=== PATIENT | female | born 1975 ===

== ENCOUNTER 2016-11-18 15:43 | Inpatient (IN) | payer BC, OTHER ==
[2016-11-18] MEDS: Lactated Ringer's 1,000 ML IV SCH ×2 (17:00→17:49)
[2016-11-18] MEDS ORDERED: ceFAZolin 2 GM in Sodium Chloride 0.9% 100 ML IVPB ONE (17:06)
[2016-11-18 17:21] LABS: BASO % 0.4 % (0.0-2.0); EOS # 0.1 K/uL (0.0-0.7); HEMATOCRIT 36.9 % (34.0-47.0); LYMPH # 1.1 K/uL (1.0-4.3); LYMPH % 16.3 % (20.0-40.0); MEAN CELL VOLUME 90.2 fl (81.0-99.0); MEAN CORPUSCULAR HEMOGLOBIN 29.6 pg (27.0-31.0); MEAN CORPUSCULAR HGB CONC 32.8 g/dL (33.0-37.0); MEAN PLATELET VOLUME 7.3 fl (7.2-11.7); MONO # 0.4 K/uL (0.0-0.8); MONO % 6.4 % (0.0-10.0); NEUT # 5.3 K/uL (1.8-7.0); NEUT % 75.9 % (50.0-75.0); RED CELL DISTRIBUTION WIDTH 15.8 % (11.5-14.5); WHITE BLOOD COUNT 6.9 K/uL (4.8-10.8)
[2016-11-18 17:38] VITALS: BP 143/84; PULSE 104; RESP 16; TEMP 98; O2SAT 100
[2016-11-18] MEDS ORDERED: Oxytocin 30 units/LR 500ML 30 U/500 ML BAG IV ONE (17:54)
[2016-11-18] MEDS ORDERED: ePHEDrine 50 mg/ml Inj ONE (18:05)
[2016-11-18] MEDS ORDERED: Morphine 1 mg/ml preservative-free Inj(Duramorph) ONE (18:06)
[2016-11-18] MEDS ORDERED: Phenylephrine 10 mg/ml Inj ONE (18:06)
--- NOTE | 2016-11-18 18:08 | OBHP ---
Datetime: 11/18/2016 18:00 IP Adm Impression: Term, intrauterine IP Admit Plan: Admit to unit Admit Comment, IP Provider: The patient presents to labor and delivery complaining of uterine contra ctions of mild to moderate intensity. Patient was going to be scheduled for section secondar y to polyhydramnios. Patient reports good movement no leakage of fluid. care significa nt for polyhydramnios abnormal GST normal 3 hour. Past medical history none Past surgical history tummy tuck and previous section Medications vitamins No known drug allergies Social history patient denies alcohol tobacco use Review of systems patient denies headache chest pain shortness of breath palpitations nausea and v omiting patient reports uterine contractions no vaginal bleeding noted heat or cold intolerance easy bruisability or musculoskeletal complaints Vital signs stable afebrile Physical exam see notes Intrauterine at 37 weeks 6 days polyhydramnios uterine contractions cervical cerclage MFM consult obtained recommendation for delivery made Informed consent obtained discussed risks benefits and alternatives to surgery patient agrees to p sj of care will admit for postop management Pelvic Type - PN: Adequate Extremities - PN: Normal Abdomen - PN: Normal Back - PN: Normal Breast - PN: Not Done Lungs - PN: Normal Heart - PN: Normal Thyroid - PN: Normal Neurologic - PN: Normal HEENT - PN: Normal General - PN: Normal Presentation-Admit: Vertex FHR - Baseline A Provider: 145 Gestation - Est Wks by US: 38.0 Pool Provider: Negative EGA AdmitDate IP: 37.6 Vital Signs Provider: Reviewed IP Chief Complaint: Uterine contractions; Scheduled Section NICHD Variability Prov Fetus A: Moderate 6-25bpm NICHD Accel Fetus A IP Provider: [id number] FHR Category Provider Fetus A: Category I NICHD Decel Fetus A IP Provider: None Dilatation, Provider: 0 Effacement, Provider: 0 Station, Provider: 0 Genitourinary Exam: Normal DTRs - PN: Normal
[2016-11-18] MEDS ORDERED: Oxycodone/Acetaminophen 5/325 mg Tab PO PRN ×3 (19:38→21:34)
[2016-11-18] MEDS ORDERED: Lactated Ringer's 1,000 ML IV SCH ×2 (19:45→21:34)
--- NOTE | 2016-11-18 21:07 | OP ---
PROCEDURE DATE: 11/18/2016 PREOPERATIVE DIAGNOSES: Intrauterine at 38+ weeks, polyhydramnios, uterine contractions, i n labor, previous history of section, history of cerclage placement. POSTOPERATIVE DIAGNOSES: Intrauterine at 38+ weeks, polyhydramnios, uterine contractions, in labor, previous history of section, history of cerclage placement. OPERATION PERFORMED: Repeat low flap transverse section via Pfannenstiel skin incision and cerclage removal. SURGEON: Joycelyn Kebede MD. RABBIT BREEDER: Dr. Aquiles Flaherty. ANESTHESIA: Spinal administered by Dr. Amato. ESTIMATED BLOOD LOSS: 800 mL. INPUT AND OUTPUT: Dominguez catheter put out approximately 100 mL of clear urine. The patient received approximately 1700 mL of D5LR intraoperatively. OPERATIVE FINDINGS: Baby boy, vertex presentation, Apgars 9 and 9, weighing 3500 grams. Normal uter us, tubes, and ovaries were identified. PROCEDURE #1: After informed consent was obtained, the patient was taken to the operating room where she was given spinal anesthesia. She was then prepped and draped in the usual sterile fashion with a leftward tilt. Pfannenstiel skin incision was then made with a scalpel and carried down to the und erlying layer of fascia. The fascia was nicked in the midline and the fascial incision was then exte nded superiorly and inferiorly with good visualization. The fascial incision was then extended later ally with the curved Ortega scissors. Superior aspect of the fascial incision was then grasped with Judson karlo clamps, elevated up, and the rectus muscles were dissected off using both sharp and blunt dissec tion. Attention was then turned to the inferior aspect of the fascial incision which in similar fash ion was grasped with Ting clamps, it was elevated up and the rectus muscles were dissected off usin g both sharp and blunt dissection. The rectus muscles were then in the midline. The perit oneum identified and entered sharply with the Metzenbaum scissors. Peritoneal incision was then exte nded superiorly and inferiorly with good visualization of the bladder. The vesicouterine peritoneum was identified and entered sharply with the Metzenbaum scissors. The incision was then extended late rally and the bladder flap was created digitally. The bladder blade was then reinserted and a low tr ansverse uterine incision was made with a scalpel. The uterine incision was then extended laterally with the bandage scissors. The infant's head was then delivered atraumatically. The nose and mouth were suctioned with DeLee suction trap. The cord was clamped and cut. The infant was handed off to waiting pediatricians. Cord blood was obtained and sent to the lab. The placenta was removed manual ly. The uterus was cleared of all clots and debris. Incision was repaired with 0 Vicryl in a runnin g locked fashion. The second layer of the same suture was used to obtain excellent hemostasis. The abdomen was then copiously irrigated. Irrigant was removed with a suction device. Hemostasis was no flavio. The uterus was returned to the abdomen. The peritoneum was closed with 2-0 Vicryl in a running fashion. The muscle was reapproximated with 0 Vicryl in interrupted fashion. The fascia was closed with 0 Vicryl in a running fashion. The skin was closed with surgical clips. All sponge, lap, need le, and instrument counts were correct x 2 and the patient was taken to recovery room in awake and st able condition. ADDENDUM: Dr. Flaherty was the assistant at surgery in the procedure and was instrumental in the care of the pa tient, helped create exposure, helpful with delivering the infant and helpful in cerclage removal. T he procedure would not have been possible without his assistance. DESCRIPTION OF PROCEDURE #2: After the section was performed, the cerclage was to be remove d. A speculum was inserted into the vagina. The cerclage suture was identified, grasped with a spon ge stick and the suture was cut. Both stitches were removed in a similar fashion. The patient navya ated the procedure well and all sponge, lap, needle, and instrument counts were correct x 2. The pat ient was taken to recovery room in awake and stable condition. Joycelyn Kebede MD cc: [id number] TT: 11/18/2016 21:06:00 ivana
[2016-11-18] MEDS ORDERED: Simethicone 80 mg Chewtab PO SCH (22:00)
[2016-11-19] MEDS: Simethicone 80 mg Chewtab PO SCH ×5 (00:47→21:51)
[2016-11-19 07:09] LABS: HEMATOCRIT 28.7 % (34.0-47.0); MEAN CELL VOLUME 90.5 fl (81.0-99.0); MEAN CORPUSCULAR HEMOGLOBIN 29.5 pg (27.0-31.0); MEAN CORPUSCULAR HGB CONC 32.6 g/dL (33.0-37.0); RED CELL DISTRIBUTION WIDTH 15.9 % (11.5-14.5); WHITE BLOOD COUNT 8.9 K/uL (4.8-10.8)
--- NOTE | 2016-11-19 08:56 | OBPPN ---
Datetime: 11/19/2016 08:50 PP Pain Prov: Within normal limits PP Nausea Prov: Denies PP Flatus Prov: No PP BM Prov: No PP Abdomen/Uterus Prov: Normal PP Lochia Prov: Normal PP Extremities Prov: Normal PP C/S Incision Prov: Normal PP Progress Prov: Normal PP Comments Phys Exam Prov: Incision w/ bandage in place PP Impression Prov: Normal progression PP Plan Prov: Continue present management PP Progress Note Prov: POD 1 s/p c/s, doing well, breast and bottle feeding, tolerating regular diet Encourage OOB today Vital Signs Provider PP: Reviewed
[2016-11-19] MEDS: Oxycodone/Acetaminophen 5/325 mg Tab PO PRN (13:35)
[2016-11-20] MEDS: Simethicone 80 mg Chewtab PO SCH ×3 (04:26→16:40)
--- NOTE | 2016-11-20 07:40 | OBPPN ---
Datetime: 11/20/2016 07:32 PP Pain Prov: Within normal limits PP Nausea Prov: Denies PP Flatus Prov: Yes PP BM Prov: No PP Abdomen/Uterus Prov: Normal PP Lochia Prov: Normal PP Extremities Prov: Normal PP C/S Incision Prov: Normal PP Progress Prov: Normal PP Comments Phys Exam Prov: Incision: intact w/ xochitl PP Impression Prov: Normal progression PP Plan Prov: Continue present management PP Progress Note Prov: POD 2 s/p Repeat c/s, doing well, breast and bottle feeding Continue curret management Vital Signs Provider PP: Reviewed
[2016-11-20] MEDS: Oxycodone/Acetaminophen 5/325 mg Tab PO PRN (16:36)
[2016-11-21] MEDS: Simethicone 80 mg Chewtab PO SCH ×3 (00:22→09:26)
--- NOTE | 2016-11-21 07:06 | OBPPN ---
Datetime: 11/21/2016 06:58 PP Pain Prov: Within normal limits PP Nausea Prov: Denies PP Flatus Prov: Yes PP BM Prov: Yes PP Abdomen/Uterus Prov: Normal PP Lochia Prov: Normal PP Extremities Prov: Normal PP C/S Incision Prov: Normal PP Progress Prov: Normal PP Comments Phys Exam Prov: Incision: intact w/ xochitl PP Impression Prov: Normal progression PP Plan Prov: Discharge PP Progress Note Prov: POD 3 s/p Repeat c/s, doing well, breast pumping and bottle feeding Rx's motrin, percocet, and ferrous sulfate given Discharge home today Pt to follow up w/ Dr. Kebede for staple removal Vital Signs Provider PP: Reviewed
== END 2016-11-21 12:00 | disposition home or self-care (01) | DRG 765 ==
LOC: H.EROB2 15:43 → H.L&D 16:59 → H.EROB2 17:02 → H.L&D 17:03 → UNDOADMIN 17:03 → H.OB/GYN 22:10 → H.L&D 22:10 → H.OB/GYN 11-19 11:00 → UNDODISIN 11-21 12:00
PROVIDERS: ADMIT Obstetrics & Gynecology Gynecology; ATTEND Obstetrics & Gynecology Gynecology
PROC: 10D00Z1 Extraction of Products of Conception, Low, Open Approach (ICD-10-PCS; principal; 2016-11-18)
PROC: 4A1HXCZ Monitoring of Products of Conception, Cardiac Rate, External Approach (ICD-10-PCS; 2016-11-18)
DX: O34.211 Maternal care for low transverse scar from previous cesarean delivery (principal); O34.33 Maternal care for cervical incompetence, third trimester; N85.8 Other specified noninflammatory disorders of uterus; Z3A.37 37 weeks gestation of pregnancy; Z37.0 Single live birth; O69.81X0 Labor and delivery complicated by cord around neck, without compression, not applicable or unspecified; O40.3XX0 Polyhydramnios, third trimester, not applicable or unspecified